=== PATIENT | female | born 1940 | race Caucasian/White ===

== ENCOUNTER 2020-09-08 20:12 | Inpatient (IN) | payer MEDICARE, OTHER ==
[~2020-09-08] VITALS: Ht 160 cm; Wt 85.4 kg
--- NOTE | 2020-09-08 20:13 | NUR ---
bibdaughter c/o 4 episodes "legs giving out" witnessed by daughter since 4am.pt to bed 4, aaox2, -sob, nad noted, placed on monitor, denies cp. pending er provider ivet
--- NOTE | 2020-09-08 20:22 | NUR ---
pt daughter meredith [phone]
[2020-09-08] MEDS ORDERED: ONDANSETRON HCL/PF 4 MG/2 ML VIAL IVP ONE (20:30)
[2020-09-08] MEDS ORDERED: IV NS 0.9% 500 ML BAG IV ONE (20:30)
[2020-09-08] MEDS ORDERED: ONDANSETRON HCL/PF 4 MG/2 ML VIAL ONE (20:41)
[2020-09-08 20:48] LABS: BASOPHILS % (AUTO) 0.3 % (0.0-2.0); HEMATOCRIT 42 % (33-45); HEMOGLOBIN 13.3 g/dL (11.5-14.8); LYMPHOCYTES # (AUTO) 1.1 /CMM (0.8-4.8); MEAN CORPUSCULAR HGB CONC 32 g/dl (31.0-36.0); MEAN CORPUSCULAR VOLUME 78 fL (82-100); MONOCYTES # (AUTO) 0.9 /CMM (0.1-1.30); MONOCYTES % (AUTO) 11.2 % (2.0-12.0); NEUTROPHILS # (AUTO) 5.9 /CMM (1.8-8.9); NEUTROPHILS % (AUTO) 74.5 % (43.0-81.0); PLATELET COUNT (AUTO) 308 /CMM (150-450); RED BLOOD CELL COUNT(AUTO) 5.31 MIL/uL (4.0-5.2)
[2020-09-08 20:57] LABS: CALCIUM, SERUM 12.8 mg/dL (8.5-10.1); CARBON DIOXIDE 24 mmol/L (21-32); CHLORIDE 95 mmol/L (98-107); GLUCOSE 116 mg/dL (74-106); POTASSIUM 3.2 mmol/L (3.5-5.1); SODIUM SERUM 131 mmol/L (136-145); UREA NITROGEN, BLOOD 11 mg/dL (7-18)
[2020-09-08 21:03] LABS: ALANINE AMINOTRANSFERASE 64 U/L (12-78); ALBUMIN 2.4 g/dL (3.4-5.0); ALKALINE PHOSPHATASE 269 U/L (46-116); ASPARTATE AMINOTRANSFERASE 294 U/L (15-37); BILIRUBIN,TOTAL 1.7 mg/dL (0.2-1.0); LIPASE 65 U/L (73-393); TOTAL PROTEIN, SERUM 7.6 g/dL (6.4-8.2)
[2020-09-08] MEDS ORDERED: CEFTRIAXONE 1GM BAG (ER ONLY) 50 ML IV ONE (21:28)
[2020-09-08] MEDS ORDERED: IV NS 0.9% 1,000 ML IV ONE (21:30)
[2020-09-08] MEDS ORDERED: CEFTRIAXONE 1GM BAG (ER ONLY) 1 GM/50 ML PIGGYBACK IV ONE (21:30)
[2020-09-08 21:39] LABS: APPEARANCE,URINE SL CLOUDY (CLEAR); BILIRUBIN,URINE SMALL (NEGATIVE); BLOOD, URINE MODERATE Ery/uL (NEGATIVE); COLOR,URINE YELLOW (YELLOW); KETONES,URINE NEGATIVE (NEGATIVE); LEUKOCYTE ESTERASE ,URINE MODERATE (NEGATIVE); NITRITE, URINE POSITIVE (NEGATIVE); PROTEIN,URINE TRACE mg/dl (NEGATIVE); UGLUCOSE NEGATIVE (NEGATIVE)
[2020-09-08 21:46] LABS: WBC,URINE 21-50 /HPF (0-3)
[2020-09-08 21:47] LABS: BACTERIA,URINE 3+ /HPF (None Seen); SQUAMOUS EPITHELIAL CELL,UR Moderate /HPF (None Seen)
--- NOTE | 2020-09-08 21:50 | NUR ---
CALLED NURSING SUP FOR BED
--- NOTE | 2020-09-08 22:00 | NUR ---
meredith family will have list of meds tomrorow. phone number in chart
--- NOTE | 2020-09-08 22:00 | NUR ---
DR. GUAMAN SPEAKING WITH DR. MESA REGARDING ADMISSION
--- NOTE | 2020-09-08 22:05 | NUR ---
BED ASSIGNMENT 117-1
--- NOTE | 2020-09-08 22:06 | NUR ---
josiane gate services supervisor gave room 117-1.
--- NOTE | 2020-09-08 22:38 | NUR ---
report given to rajat ronquillo for vito pt will be transported to 1st floor
--- NOTE | 2020-09-08 22:38 | NUR ---
per dr urban, low suspicion for covid, PCR covid cancelled, pt rapid covid neg
[2020-09-08 22:50] VITALS: BP 103/86
--- NOTE | 2020-09-08 22:50 | NUR ---
RN ARJUN ADMISSION NOTES, RECEIVED PATIENT FROM ER DEPARTMENT VIA GURNEY ACCOMPANIED BY 2 RN, UNDER MEDICAL SERIVES OF DR MESA, WITH ADMITTING DX UTI, PATIENT A/O X2, ABLE TO VERBALIZED NEEDS AND CONCERNS, ON O2 2L NC WITH OPTIMAL O2 SAT LEVEL, NO BREATHING EVEN AND UNLABORED, NO SOB/ACUTE RESP DISTRESS NOTED, NO S/S OF PAIN O DISCOMFORT, ATTACH TO TELE AND SHOW NSR WITH OCCASIONAL PVCS, LEFT HAND PIV ACCESS PATENT AND INTACT, BED BATH GIVEN UPON ADMISSION, NOTED PERINEAL REDNESS AND SACRAL DISCOLORATION, DISCOLORATION IN LEFT ELBOW AND RIGHT LATERAL KNEE, VS UPON ADMISSION 103/86, 90, 98% 2L VIA NC, 98.8, 18, BED LOCKED AN DIN LOWEST POSITION, S/R OF BED UP, CALL LIGHT W/I REACH, ORIENTED PATIENT TO ROOM AND SURROUNDINGS, WILL CONTINUE TO MONITOR CLOSELY, AWAITING FOR DR ORDERS..
[2020-09-08] MEDS ORDERED: MAGNESIUM HYDROXIDE 30 ML UDC PO PRN (23:30)
[2020-09-08] MEDS ORDERED: Z GUARD REMEDY 2 OZ OINT TP PRN (23:30)
[2020-09-08] MEDS ORDERED: HYDROCODONE/APAP 5/325MG TABLET PO PRN (23:30)
[2020-09-08] MEDS ORDERED: MAG HYDROX/AL HYDROX/SIMETH 30 ML UDC PO PRN (23:30)
[2020-09-08] MEDS ORDERED: ONDANSETRON HCL/PF 4 MG/2 ML VIAL IVP PRN (23:30)
[2020-09-08] MEDS ORDERED: IV NS 0.9% 1,000 ML IV PRN (23:30)
[2020-09-08] MEDS ORDERED: ACETAMINOPHEN 325 MG TABLET PO PRN (23:30)
[2020-09-08] MEDS ORDERED: POTASSIUM CHLORIDE 20 MEQ TAB.PRT.SR PO ONE (23:30)
[2020-09-08] MEDS: ENOXAPARIN SODIUM 40 MG/0.4 ML DISP.SYRIN SQ SCH (23:37)
[2020-09-09] VITALS: BP 130/80
[2020-09-09 04:00] VITALS: BP 106/63
[2020-09-09 06:41] LABS: BASOPHILS % (AUTO) 0.4 % (0.0-2.0); HEMATOCRIT 38 % (33-45); HEMOGLOBIN 11.9 g/dL (11.5-14.8); LYMPHOCYTES # (AUTO) 2.1 /CMM (0.8-4.8); LYMPHOCYTES % (AUTO) 25.7 % (20.0-44.0); MEAN CORPUSCULAR HGB CONC 31 g/dl (31.0-36.0); MEAN CORPUSCULAR VOLUME 81 fL (82-100); MONOCYTES % (AUTO) 12.6 % (2.0-12.0); NEUTROPHILS % (AUTO) 61.3 % (43.0-81.0); PLATELET COUNT (AUTO) 275 /CMM (150-450); WHITE BLOOD COUNT (AUTO) 8.2 K/uL (4.3-11.0)
--- NOTE | 2020-09-09 06:50 | NUR ---
CHIEF MEDICAL DIRECTOR CLOSING NOTES, PATIENT AWAKE AT THIS TIME, A/O X2, ABLE TO VERBALIZED NEEDS AND CONCERNS, ON O2 2L NC WITH OPTIMAL O2 SAT LEVEL, NO BREATHING EVEN AND UNLABORED, NO SOB/ACUTE RESP DISTRESS NOTED, NO S/S OF PAIN O DISCOMFORT, ATTACH TO TELE AND SHOW NSR WITH OCCASIONAL PVCS, LEFT HAND PIV ACCESS PATENT AND INTACT, NO SIGNIFICANT CHANGE IN CONDITION DURING THE NIGHT, MEDICATION RECONCILIATION STILL PENDING, DAUGHTER WILL BRING MEDICATION BOTTLES LATER, DAUGHTER NOT AWARE IF MOM HAS FLU AND PNA VACCINE, AND SHE PROVIDED PRIMARY DR PHONE NUMBER WILL ENDORSE TO AM SHIFT, VACCINATIONS AND BED LOCKED AN DIN LOWEST POSITION, S/R OF BED UP, CALL LIGHT W/I REACH, WILL ENDORSE TO ONCOMING NURSE.
[2020-09-09 07:25] LABS: BILIRUBIN,DIRECT 0.9 mg/dL (0.0-0.2); BILIRUBIN,TOTAL 1.2 mg/dL (0.2-1.0); CALCIUM, SERUM 11.8 mg/dL (8.5-10.1); CREATININE 0.8 mg/dL (0.6-1.3); MAGNESIUM 2.2 mg/dL (1.8-2.4); PHOSPHORUS 2.8 mg/dL (2.5-4.9); POTASSIUM 3.9 mmol/L (3.5-5.1); TOTAL PROTEIN, SERUM 6.6 g/dL (6.4-8.2)
--- NOTE | 2020-09-09 07:30 | NUR ---
RN NOTE THE PATIENT IS RECEIVED IN BED. THE PATIENT IS ALERT AND ORIENTED X2. RECEIVING OXYGEN AT 2L/MIN VIA NASAL CANNULA AND DENIES SOB. RESPIRATION REGULAR AND UNLABORED. DENIES PAIN. EXTERNAL TELE BOX READING IS SR80 WITH PVC AND PAC. LEFT HAND G 18 PATENT AND SALINE LOCKED. BED LOW AND LOCKED. SIDE RAILS UP X3. CALL LIGHT WITHIN REACH. WILL CONTINUE TO MONITOR.
[2020-09-09] MEDS ORDERED: DONE10TA11 PO (10:12)
[2020-09-09] MEDS ORDERED: DICY10CA37 PO (10:12)
[2020-09-09] MEDS ORDERED: LEVO175T7 PO (10:12)
[2020-09-09] MEDS ORDERED: OLAN10TA3 PO (10:12)
[2020-09-09] MEDS ORDERED: ESCI10TA PO (10:12)
[2020-09-09] MEDS ORDERED: OMEP20CA15 PO (10:12)
--- NOTE | 2020-09-09 18:56 | NUR ---
RN NOTE THE PATIENT IS ALERT AND ORIENTED X2. DENIES PAIN. ON OXYGEN AT 2L/MIN VIA NASAL CANNULA AND SATURATION IS AT 97%. DENIES SOB. BREATHING EVEN AND UNLABORED. TELE BOX READING IS SINUS TACHYCARDIA 110. PATIENT IN NO APPARENT DISTRESS. LEFT HAND G 18 PATENT AND SALINE LOCKED. BED LOW AND LOCKED. SIDE RAILS UP X3. BED ALARM ON. CALL LIGHT WITHIN REACH. WILL ENDORSE TO ENROLLMENT COORDINATOR.
--- NOTE | 2020-09-09 19:40 | NUR ---
SPECIAL EFFECTS MAKEUP ARTIST OPENING NOTE, THE PATIENT IN BED AWAKE A/O X3, ON OXYGEN AT 2L/MIN VIA NASAL CANNULA WITH SATURATION >94%, BREATHING EVEN AND UNLABORED, NO SOB/ACUTE DISTRESS, PATIENT, NSR ON TELE MONITOR WITH HR 80S WITH OCCASIONAL PAC, PIV LINE LEFT HAND G 18 DISLODGED, WILL INSERT ANOTHER ONE, BED LOW AND LOCKED, SIDE RAILS UP X3, BED ALARM ON, CALL LIGHT WITHIN REACH, WILL CONTINUE TO MONITOR CLOSELY.
[2020-09-09 20:00] VITALS: BP 119/63
[2020-09-09] MEDS: ENOXAPARIN SODIUM 40 MG/0.4 ML DISP.SYRIN SQ SCH (20:08)
[2020-09-09 20:19] LABS: FREE PSA < 0.06 ng/mL
[2020-09-09 20:27] LABS: PROSTATE SPECIFIC ANTIGEN SCR < 0.13 ng/mL
[2020-09-09] MEDS ORDERED: CEFTRIAXONE 1 G in IV D5W 50 ML IV SCH (21:00)
[2020-09-10] VITALS: BP 131/65
--- NOTE | 2020-09-10 00:30 | NUR ---
TIERCE FILLER NOTE [facility] [employer] CALLED AND INFORMED THAT BED IS AVAILABLE IN [facility]. ACCEPTING DR MICHELLE LOVING TELE BED 202 B. INFORMED NURSE BECCA TO FOLLOW UP ON TRANSFER THE PT.
[2020-09-10] MEDS ORDERED: CEFT1VIA15 IV (02:41)
--- NOTE | 2020-09-10 03:04 | NUR ---
RN NOTES, CALLED [facility] AND GAVE REPORT TO MARGUERITE GARDNER ABOUT PATIENT GOING OVER THER FOR CONTINUATION OF CARE, PATIENT IS GOING TO TELE FLOOR BED , .
--- NOTE | 2020-09-10 03:06 | NUR ---
RN NOTES, CALLED DAUGHTER WINIFRED AT TO UPDATE HER ABOUT MOM GOING TO BE TRANSFERRED TO [facility], UNABLE TO REACH, AND UNABLE TO LEAVE MESSAGE VOICE MAIL FULL, CALLED BROTHER AT [phone] AND VERBALIZED UNDERSTANDING.
[2020-09-10 04:00] VITALS: BP 142/76
--- NOTE | 2020-09-10 05:05 | NUR ---
RN NOTES, PATIENT LEFT AT THIS TIME VIA [facility] ACCOMPANIED BY 2EMTS, PATIENT A/OX 3 ABLE TO VERBALIZED UNDERSTANDING, BREATHING EVEN AND UNLABORED, NO DISTRESS/ACUTE RESP DISTRESS, AWARE AND AGREE TO GO TO [facility], EDUCATION PROVIDED, REFUSED 2 VACCINES FLU AND PNA, EDUCATION PROVIDED REGARDING VACCINATIONS, BELONGINGS TAKEN WITH PATIENT, STABLE VITAL SIGNS UPON DISCHARGE 130/80, 99, 20, 98.8, 94% AT 2LPM VIA KS. CALLED AGAIN DAUGHTER TO INFORM HER AND UNABLE TO REACH, UNABLE TO LEAVE MESSAGE VOICE MAIL FULL.
== END 2020-09-10 06:04 | disposition short-term general hospital (02) | DRG 640 ==
LOC: ER 20:12 → TELE-TD 22:06 → TELE1 09-09 00:27
PROVIDERS: ADMIT Internal Medicine; ATTEND Nurse Practitioner Acute Care
DX: E87.1 Hypo-osmolality and hyponatremia (principal); N17.0 Acute kidney failure with tubular necrosis; G93.41 Metabolic encephalopathy; N39.0 Urinary tract infection, site not specified; E46 Unspecified protein-calorie malnutrition; F02.80 Dementia in other diseases classified elsewhere, unspecified severity, without behavioral disturbance, psychotic disturbance, mood disturbance, and anxiety; E87.6 Hypokalemia; E86.1 Hypovolemia; G30.9 Alzheimer's disease, unspecified; E83.52 Hypercalcemia; R74.01 Elevation of levels of liver transaminase levels
CPT/HCPCS: 36415; 71045-TC; 76700-TC; 80048-TC; 80076-TC; 81000-TC; 83605-TC; 83690-TC; 83735-TC; 84100-TC; 84153-TC; 84154-TC; 84484-TC; 85025-TC; 87040-TC; 87081-TC; 87086-TC; 87186-TC; 97112-TC; 97116-TC; 97530-TC; C9803-CS; G0378; J0696; J1650; J2405; J7030; J7040; J7060; U0003-CS